=== PATIENT | male | born 1990 | race Caucasian/White ===

== ENCOUNTER 2018-06-25 11:26 | Outpatient (CLI) | payer OTHER | END 2018-06-25 11:27 | disposition home or self-care (01) | LOC: SC 11:26 | PROVIDERS: ATTEND Internal Medicine Pulmonary Disease | DX: R06.81 Apnea, not elsewhere classified (principal); G47.10 Hypersomnia, unspecified; G47.8 Other sleep disorders; R06.83 Snoring; R51 Headache; E66.9 Obesity, unspecified; Z68.36 Body mass index [BMI] 36.0-36.9, adult | CPT/HCPCS: 99203; 99212 ==

== ENCOUNTER 2018-07-04 09:43 | Outpatient (CLI) | payer OTHER ==
[~2018-07-04 09:43] MED LIST: GADOPENTETATE DIMEGLUMINE 5 ML VIAL IVP ONE; IOTHALAMATE MEGLUMINE 50 ML VIAL ONE; LIDOCAINE 1% 10 ML MDV ONE
[2018-07-04] MEDS ORDERED: BUFFERED LIDOCAINE 10 ML SYRINGE ONE (09:49)
--- NOTE | 2018-07-04 11:53 | XRAY Report ---
Reason: OTHER INSTABILITY,LEFT SHOULDER Procedure Date: 07/04/2018 Accession Number: [id number] / [id number] Procedure: FL - Arthrogram Needle Placement CPT Code: FULL RESULT: EXAM: LEFT SHOULDER ARTHROGRAPHIC INJECTION WITH FLUOROSCOPIC GUIDANCE EXAM DATE: 07/04/2018 10:23 AM. CLINICAL HISTORY: Other instability, left shoulder. COMPARISON: None. TECHNIQUE: The risks, benefits, and alternatives of the procedure were discussed with the patient. All questions were answered. Written and verbal consent were obtained. The glenohumeral joint was marked under fluoroscopy and prepped and draped in a sterile manner. Local anesthesia was performed with 1% lidocaine. A 22-gauge needle was then inserted into the glenohumeral joint. 8 mL of a solution containing 25% 1% lidocaine, 25% iodinated contrast, and a 1:200 dilution of gadolinium contrast in sterile saline was then injected. The needle was removed without immediate complication. Other: None. Fluoroscopy Time: 0.2 minutes. Number of Images: 9. FINDINGS: Bones and joints: No fracture or subluxation. Injection: Fluoroscopic images demonstrate needle placement and contrast in the glenohumeral joint. No contrast extravasation outside of the glenohumeral joint. IMPRESSION: Successful fluoroscopically-guided arthrographic injection of the shoulder. [facility]
--- NOTE | 2018-07-04 13:36 | MRI Report ---
Reason: OTHER INSTABILITY,LEFT SHOULDER Procedure Date: 07/04/2018 Accession Number: [id number] / [id number] Procedure: MRI - Arthrogram Shoulder LT CPT Code: FULL RESULT: EXAM: LEFT SHOULDER MRI ARTHROGRAM WITH CONTRAST EXAM DATE: 07/04/2018 10:33 AM. CLINICAL HISTORY: Other instability, left shoulder. COMPARISON: None. TECHNIQUE: Multiplanar, multisequence T1-weighted and fluid-sensitive sequences of the shoulder after an arthrographic injection of dilute gadolinium, dictated under a separate exam. Other: None. FINDINGS: Rotator cuff: Thickening and increased intrasubstance signal involving the distal anterior fibers of the supraspinatus. There is some associated ill-defined fraying at the distal articular surface. No evidence of a high-grade or full-thickness rotator cuff tear. No significant rotator cuff muscle atrophy or fatty replacement. Long head biceps tendon: Intact demonstrating normal course, signal and morphology. Labrum: Intact. No tear is identified. Bones and articular surfaces: No significant articular cartilage defects are seen. Acromioclavicular joint: Mild degenerative change. Type II acromion. IMPRESSION: 1. Moderate supraspinatus tendinosis. 2. Ill-defined fraying at the distal articular surface of the supraspinatus. No evidence of a high-grade or full-thickness rotator cuff tear. 3. Mild degenerative change at the acromioclavicular joint. [facility] MUSCULOSKELETAL RADIOLOGY SECTION
[2018-07-04] MEDS ORDERED: GADOPENTETATE DIMEGLUMINE 5 ML VIAL IVP ONE (15:04)
[2018-07-04] MEDS ORDERED: IOTHALAMATE MEGLUMINE 50 ML VIAL IVP ONE (15:04)
[2018-07-04] MEDS ORDERED: BUFFERED LIDOCAINE 10 ML SYRINGE IU ONE (15:04)
== END 2018-07-04 09:44 | disposition home or self-care (01) ==
LOC: DI 09:43
PROVIDERS: ATTEND Orthopaedic Surgery
DX: M75.92 Shoulder lesion, unspecified, left shoulder (principal); M19.012 Primary osteoarthritis, left shoulder
CPT/HCPCS: 23350; 73222; 77002; Q9961

== ENCOUNTER 2018-07-16 19:33 | Outpatient (CLI) | payer OTHER | END 2018-07-16 19:34 | disposition home or self-care (01) | LOC: SC 19:33 | PROVIDERS: ATTEND Internal Medicine Pulmonary Disease | DX: R06.83 Snoring (principal); G47.61 Periodic limb movement disorder | CPT/HCPCS: 95810 ==

== ENCOUNTER 2018-08-20 10:48 | Outpatient (CLI) | payer OTHER | END 2018-08-20 10:49 | disposition home or self-care (01) | LOC: SC 10:48 | PROVIDERS: ATTEND Nurse Practitioner Family | DX: R06.83 Snoring (principal); G47.61 Periodic limb movement disorder | CPT/HCPCS: 99212; 99214 ==

== ENCOUNTER 2018-09-17 15:12 | Outpatient (CLI) | payer OTHER | END 2018-09-17 15:13 | disposition home or self-care (01) | LOC: SC 15:12 | PROVIDERS: ATTEND Nurse Practitioner Family | DX: R06.83 Snoring (principal); R53.83 Other fatigue | CPT/HCPCS: 99212; 99213 ==

== ENCOUNTER 2018-10-23 12:44 | Outpatient (CLI) | payer OTHER | END 2018-10-23 12:45 | disposition home or self-care (01) | LOC: SC 12:44 | PROVIDERS: ATTEND Nurse Practitioner Family | DX: R06.83 Snoring (principal) | CPT/HCPCS: 99212; 99213 ==

== ENCOUNTER 2018-11-25 10:24 | Emergency (ER) | payer OTHER ==
--- NOTE | 2018-11-25 10:52 | ED Physician Documentation ---
PD HPI FOCAL NEURO - Stated complaint Stated Complaint: LT SIDE NUMBESS - Chief complaint Chief Complaint: Neuro - History obtained from History obtained from: Patient - History of Present Illness Timing - onset: How many days ago Timing - duration: Days (He initially noted some numbness and weakness of the left arm a couple of days ago. He has had shoulder problems with this apparently rotator cuff and is due for surgery in March and has been doing physical therapy and strengthening of the shoulder girdle muscles. He initially attributed the numbness in the arm to problems from the shoulder. He then last night into today noted some feeling of numbness and weakness in the left leg and this morning some numbness in the left face along with a droop. He states it feels as though he had "just had dental cavity filled" with the numbness feeling of the face. He is also having a obvious droop of the left side of the face around the corner of the mouth. He denied any headache. He is having that shoulder pain into the pectoral area of the chest but is also having pain in the left side of the neck.) Timing - details: Gradual onset Severity of deficit: Moderate Weakness: Face, Arm, Leg, Left Numbness: Face, Arm, Leg, Left Associated symptoms: Chest pain (Left pectoral and shoulder into the left side of the neck.), Neck pain. No: Headache, Nausea / vomiting, Syncope, Fall, Head injury Contributing factors: negative: Anticoagulated, Vascular dz Baseline status: positive: A&OX3, ambulatory, indep Similar symptoms before: Has not had sx before Recently seen: Clinic (He is being treated for left shoulder or cuff problem.) Review of Systems Constitutional: denies: Fever, Chills Nose: denies: Rhinorrhea / runny nose, Congestion Throat: denies: Sore throat Cardiac: denies: Palpitations, Pedal edema, Calf pain Respiratory: denies: Cough, Wheezing GI: denies: Abdominal Pain, Nausea, Vomiting Skin: denies: Rash, Lesions Neurologic: reports: Focal weakness, Numbness. denies: Generalized weakness, Altered mental status, Headache Psychiatric: denies: Depressed, Anxiety PD PAST MEDICAL HISTORY - Past Medical History Past Medical History: Yes Cardiovascular: Hypertension Psych: Anxiety Musculoskeletal: Other (Left shoulder pain with a rotator cuff process and biceps.) - Past Surgical History Past Surgical History: Yes - Present Medications Home Medications: Ambulatory Orders Medication Instructions Recorded Confirmed Lisinopril [Zestril] 20 mg PO 11/25/18 Venlafaxine ER [Effexor ER] 150 mg PO DAILY 11/25/18 11/25/18 - Allergies Allergies/Adverse Reactions: Allergies Allergy/AdvReac Type Severity Reaction Status Date / Time No Known Drug Allergies Allergy Verified 11/25/18 10:29 - Social History Does the pt smoke?: No Smoking Status: Former smoker Does the pt drink ETOH?: Yes Does the pt have substance abuse?: No PD ED PE NORMAL - Vitals Vital signs reviewed: Yes - General General: Alert and oriented X 3, No acute distress (He is comfortable lying still. He appears uncomfortable with lifting or moving his left shoulder or flexing at the elbow. There is no edema in the hand or leg), Well developed/nourished - HEENT HEENT: Atraumatic - Neck Neck: Supple, no meningeal sign, No adenopathy, No bruit - Cardiac Cardiac: RRR, No murmur - Respiratory Respiratory: No respiratory distress, Clear bilaterally - Abdomen Abdomen: Normal bowel sounds, Soft, Non tender, Non distended - Male Male : Deferred - Rectal Rectal: Deferred - Back Back: No CVA TTP, No spinal TTP - Derm Derm: Normal color, Warm and dry, No rash - Neuro Neuro: Alert and oriented X 3, Normal speech, Other (There is an obvious left facial droop. Asking him to puff his cheeks, he is unable to hold pressure on the left side and sputters out air on the left. He has decreased sensation to light touch and sharp numbness on the left face left arm and left leg and does not appear to be dermatomal. There is weakness on the left arm and leg with lifting. His left arm limitation is also due to the shoulder pain he is previously had. There is the obvious left facial droop.) Eye Opening: Spontaneous Motor: Obeys Commands Verbal: Oriented GCS Score: 15 - Psych Psych: Normal mood NIHSS - Level of Consciousness Level of consciousness: (0) Alert, Keenly responsive LOC Questions: (0) Answers both Q's correct LOC Commands: (0) Performs both correctly - Gaze Best Gaze: (0) Normal - Visual Visual: (0) No loss - Facial Palsy Facial Palsy: (2) Partial paralysis - Motor Arms (both separate) Motor Arm (right): (0) No drift Motor Arm (left): (1) Drift (but does seem to be related to pain in shoulder holding arm up) - Motor Legs (both separate) Motor Leg (right): (0) No drift Motor Leg (left): (1) Drift - Limb Ataxia Limb Ataxia: (0) Absent - Sensory Sensory: (1) Povf-[id number] loss - Best Language Best Language: (0) No aphasia - Dysarthria Dysarthria: (0) Normal - Extinction and Inattention (formally neg Extinction and inattention: (0) No abnormality - Total Score/Results Total Score/Result: 5 Results - Vitals Vitals: Vital Signs - 24 hr 11/25/18 11/25/18 11/25/18 10:28 12:32 17:09 Temperature 37.5 C Heart Rate 93 92 85 Respiratory 20 14 14 Rate Blood Pressure 183/107 H 149/93 H 159/93 H O2 Saturation 98 96 96 Oxygen O2 Source Room air - Labs Labs: Laboratory Tests 11/25/18 11/25/18 11/25/18 11:10 11:10 11:10 WBC 6.3 RBC 5.00 Hgb 14.9 Hct 43.2 MCV 86.5 MCH 29.8 MCHC 34.4 RDW 12.7 Plt Count 281 MPV 8.1 Neut # (Auto) 4.4 Lymph # (Auto) 1.4 L [place] # (Auto) 0.4 Eos # (Auto) 0.0 Baso # (Auto) 0.0 Absolute Nucleated RBC 0.01 Nucleated RBC % 0.1 ESR 2 Sodium 137 Potassium 4.1 Chloride 102 Carbon Dioxide 25 Anion Gap 10.0 BUN 15 Creatinine 0.8 Estimated GFR (MDRD) 116 Glucose 114 H Calcium 9.7 Magnesium 1.8 Total Bilirubin 0.5 AST 35 ALT 34 Alkaline Phosphatase 82 Total Creatine Kinase 225 Total Protein 8.4 H Albumin 4.7 Globulin 3.7 Albumin/Globulin Ratio 1.3 Lipase 42 PD MEDICAL DECISION MAKING - ED course Complexity details: re-evaluated patient, considered differential (Highest concern was for vascular including dissection, stroke or bleeding. CT angios were performed of the chest neck and head without any acute dissection or occlusions noted. Blood test showed normal blood count electrolytes and sed rate. At this point I am unable to get an MRI this afternoon but would be able to tomorrow. We have no neurology available. 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 They deferred to more local hospital. I spoke with stroke neurologist at [facility]. It did seem timely in order to get further imaging such as MRI MRA and we are unable to get that this evening or until tomorrow. The neurologist accepted transfer of the patient for further work-up.) Departure - Departure Disposition: 02 Transfer Acute Care Hosp Clinical Impression: Acute left-sided weakness, Left sided numbness Shoulder pain Qualifiers: Chronicity: acute Laterality: left Qualified Code(s): M25.512 - Pain in left shoulder Condition: Stable Record reviewed to determine appropriate education?: Yes
[2018-11-25] MEDS ORDERED: MORPHINE 10 MG/ML VIAL IVP STA (11:03)
[2018-11-25] MEDS ORDERED: SODIUM CHLORIDE 0.9% 1,000 ML IV ONE (11:03)
[2018-11-25] MEDS ORDERED: KETOROLAC 15 MG/ML VIAL IVP STA ×2 (11:03→16:43)
[2018-11-25] MEDS ORDERED: IOVERSOL 320 100 ML VIAL IVP ONE ×3 (11:17→15:22)
[2018-11-25 11:25] LABS: BASOPHILS % (AUTO) 0.5 %; EOSINOPHILS % (AUTO) 0.7 %; HGB - HEMOGLOBIN 14.9 g/dL (14.0-18.0); LYMPHOCYTES # (AUTO) 1.4 10^3/uL (1.5-3.5); LYMPHOCYTES % (AUTO) 22.6 %; MEAN CORPUSCULAR HEMOGLOBIN 29.8 pg (27.0-31.0); MEAN CORPUSCULAR HGB CONC 34.4 g/dL (32.0-36.0); MEAN CORPUSCULAR VOLUME 86.5 fL (80.0-94.0); MEAN PLATELET VOLUME 8.1 fL (7.4-11.4); MONOCYTES # (AUTO) 0.4 10^3/uL (0.0-1.0); MONOCYTES % (AUTO) 6.3 %; NEUTROPHILS # (AUTO) 4.4 10^3/uL (1.5-6.6); NEUTROPHILS % (AUTO) 69.9 %; PLT - PLATELET COUNT 281 10^3/uL (130-450); RED CELL DISTRIBUTION WIDTH 12.7 % (12.0-15.0); WHITE BLOOD COUNT 6.3 x10^3/uL (4.8-10.8)
[2018-11-25 11:37] LABS: ALBUMIN 4.7 g/dL (3.2-5.5); ALBUMIN/GLOBULIN RATIO 1.3 (1.0-2.2); BILIRUBIN,TOTAL 0.5 mg/dL (0.2-1.0); CALCIUM 9.7 mg/dL (8.5-10.3); CREATININE 0.8 mg/dL (0.6-1.2); MAGNESIUM 1.8 mg/dL (1.7-2.8); TOTAL PROTEIN 8.4 g/dL (6.7-8.2)
--- NOTE | 2018-11-25 12:21 | CT Report ---
Reason: weakness left face/arm/leg Procedure Date: 11/25/2018 Accession Number: [id number] / [id number] Procedure: CT - ANGIO CHEST W/WO CPT Code: FULL RESULT: EXAM: CT ANGIOGRAM CHEST EXAM DATE: 11/25/2018 12:00 PM. CLINICAL HISTORY: Weakness left face/arm/leg. COMPARISON: None. TECHNIQUE: Routine helical imaging was performed through the chest in the arterial phase and without contrast. IV Contrast: OPTI 320 90mL. Reconstructions: Coronal 3-D MIP reconstructions.Sagittal and coronal. In accordance with CT protocol optimization, one or more of the following dose reduction techniques were utilized for this exam: automated exposure control, adjustment of mA and/or KV based on patient size, or use of iterative reconstructive technique. FINDINGS: Thoracic aorta and vascular structures: The thoracic aortic arch demonstrates no evidence of acute injury within limitation of some motion of the ascending aorta. The right brachiocephalic artery gives rise to the right common carotid artery, right vertebral artery, and right subclavian artery, all are patent. The left common carotid artery arises independently from the aortic arch and is patent. The left brachiocephalic artery is patent and gives rise to a patent vertebral artery on the left. Limited evaluation of the main pulmonary artery demonstrates no thrombus, measured caliber is up to 2.9 cm. Lungs/Pleura: Limited evaluation of the lungs due to motion, no consolidation or lung masses detected. No pleural effusion or pneumothorax. Mediastinum: Normal. No cardiac enlargement or adenopathy. Upper Abdomen: Unremarkable. Other: None. IMPRESSION: No evidence of injury to the aorta and its proximal branch vessels. [facility]
[2018-11-25] MEDS ORDERED: HYDROmorphone 1 MG/ML CARPUJECT IVP STA ×3 (12:43→18:43)
--- NOTE | 2018-11-25 13:29 | CT Report ---
Reason: L sided weakness/numbness Procedure Date: 11/25/2018 Accession Number: [id number] / [id number] Procedure: CT - ANGIO HEAD W CPT Code: FULL RESULT: EXAM: CT ANGIOGRAM HEAD. CT SCAN OF THE HEAD WITH CONTRAST. EXAM DATE: 11/25/2018 01:02 PM CLINICAL HISTORY: L sided weakness/numbness. COMPARISON: Concurrently obtained CTA neck has been dictated separately. TECHNIQUE: - CT Scan Head: Using a multidetector scanner, axial images were acquired from the foramen magnum to the skull vertex following contrast administration. - CT Angiogram: Using a multidetector scanner, high-resolution axial images were acquired from the skull base through vertex following rapid infusion of intravenous contrast. Reformats: Multiplanar MIP reformats were reconstructed. Nascet criteria used for stenosis measurement. IV Contrast: 80 cc Optiray 320. In accordance with CT protocol optimization, one or more of the following dose reduction techniques were utilized for this exam: automated exposure control, adjustment of mA and/or KV based on patient size, or use of iterative reconstructive technique. FINDINGS: NON-CONTRAST HEAD: Not performed. No abnormal enhancement on the postcontrast CT head. Cavum septum pellucidum et vergae, a benign anatomic variant. No hydrocephalus. No midline shift. No definite evidence of acute infarct or hemorrhage on this postcontrast evaluation although evaluation is not as sensitive as noncontrast CT head. The visualized orbits are unremarkable. The postcontrast appearance of the paranasal sinuses and mastoid air cells is unremarkable. POST-CONTRAST HEAD: No abnormal enhancement. CT ANGIOGRAM HEAD: RIGHT: Internal Carotid artery: No evidence of dissection. No evidence of aneurysm along the intracranial ICA. Anterior Cerebral Artery: Patent without significant stenosis, aneurysm, or vascular malformation. Middle Cerebral Artery: Patent without significant stenosis, aneurysm, or vascular malformation. Posterior Cerebral Artery: Patent without significant stenosis, aneurysm, or vascular malformation. Posterior Communicating Artery: Patent. No aneurysm. Vertebral Artery: Patent without significant stenosis. No evidence of dissection. LEFT: Internal Carotid artery: No evidence of dissection. No evidence of aneurysm along the intracranial ICA. Anterior Cerebral Artery: Patent without significant stenosis, aneurysm, or vascular malformation. Middle Cerebral Artery: Patent without significant stenosis, aneurysm, or vascular malformation. Posterior Cerebral Artery: Patent without significant stenosis, aneurysm, or vascular malformation. Posterior Communicating Artery: Patent. No aneurysm. Vertebral Artery: Patent without significant stenosis. No evidence of dissection. CENTRAL: Anterior Communicating Artery: Patent. No aneurysm. Basilar Artery: Patent without significant stenosis. No aneurysm. DURAL VENOUS SINUSES AND MAJOR CENTRAL VEINS: Patent. IMPRESSION: 1. Noncontrast CT head was not performed. 2. No abnormal enhancement on the postcontrast CT head. No definite evidence of acute infarct or hemorrhage on this postcontrast evaluation although evaluation is much less sensitive than with noncontrast CT head. 3. No CTA evidence of hemodynamically significant stenosis, large vessel occlusion, acute dissection, aneurysm, or vascular malformation within intracranial arteries. [facility]
--- NOTE | 2018-11-25 14:20 | CT Report ---
Reason: L sided facial droop, L shoulder pain Procedure Date: 11/25/2018 Accession Number: [id number] / [id number] Procedure: CT - ANGIO NECK W/WO CPT Code: FULL RESULT: EXAM: CT ANGIOGRAM NECK EXAM DATE: 11/25/2018 01:02 PM. CLINICAL HISTORY: 28-year-old male. L sided facial droop, L shoulder pain. COMPARISON: CTA head up to concurrently TECHNIQUE: Routine axial helical imaging was performed from the skull base through the aortic arch. Reconstructions: Routine multiplanar 3D MIP reconstructions. IV Contrast: OPTI 320 80mL. Evaluation of arterial stenosis is based on a NASCET method of measurement. In accordance with CT protocol optimization, one or more of the following dose reduction techniques were utilized for this exam: automated exposure control, adjustment of mA and/or KV based on patient size, or use of iterative reconstructive technique. FINDINGS: Right Carotid: The common carotid, internal carotid, and external carotid arteries are widely patent. No dissection, significant atherosclerotic plaque, or calcification identified. Left Carotid: The common carotid, internal carotid, and external carotid arteries are widely patent. No dissection, significant atherosclerotic plaque, or calcification identified. Vertebrals: The vertebrobasilar system shows no stenoses. Intracranial Circulation: Concurrently obtained CTA head is dictated separately. Other: The visualized lung apices are clear. The visualized osseous structures are unremarkable. The visualized soft tissues of the neck demonstrate no acute abnormality. IMPRESSION: 1. Normal neck CT angiogram. No hemodynamically significant stenoses. 2. Concurrently obtained CTA head as dictated separately. [facility]
[2018-11-25] MEDS ORDERED: ASPIRIN CHEW 81 MG TABLET PO STA (16:24)
[2018-11-25] MEDS ORDERED: ACETAMINOPHEN 500 MG TABLET PO STA (16:44)
[2018-11-25 18:19] VITALS: BP 165/79
== END 2018-11-25 18:50 | disposition short-term general hospital (02) ==
LOC: ED 10:24
DX: R29.810 Facial weakness (principal); R29.898 Other symptoms and signs involving the musculoskeletal system; R20.0 Anesthesia of skin; M25.512 Pain in left shoulder; I10 Essential (primary) hypertension; Z87.891 Personal history of nicotine dependence
CPT/HCPCS: 36415; 70496; 70498; 71275; 80053; 82550; 83690; 83735; 85025; 85651; 93005; 96361; 96374; 96375; 96376; 99284; A9270; J1170; Q9967; 99283

== ENCOUNTER 2019-04-06 18:34 | Outpatient (CLI) | payer OTHER | END 2019-04-06 18:35 | disposition critical access hospital (66) | LOC: EMS 18:34 | PROVIDERS: ATTEND Surgery | DX: R20.2 Paresthesia of skin (principal); R52 Pain, unspecified; R11.2 Nausea with vomiting, unspecified; R19.7 Diarrhea, unspecified; R50.9 Fever, unspecified | CPT/HCPCS: A0425; A0429 ==

== ENCOUNTER 2019-04-06 18:53 | Emergency (ER) | payer OTHER ==
[2019-04-06] MEDS ORDERED: SODIUM CHLORIDE 0.9% 1,000 ML IV STA (19:09)
[2019-04-06] MEDS ORDERED: ONDANSETRON 4 MG/2 ML VIAL IVP STA (19:09)
[2019-04-06 19:31] LABS: BASOPHILS % (AUTO) 0.5 %; EOSINOPHILS # (AUTO) 0.1 10^3/uL (0.0-0.7); EOSINOPHILS % (AUTO) 0.6 %; HGB - HEMOGLOBIN 15.2 g/dL (14.0-18.0); LYMPHOCYTES # (AUTO) 2.3 10^3/uL (1.5-3.5); MEAN CORPUSCULAR HEMOGLOBIN 30.2 pg (27.0-31.0); MEAN CORPUSCULAR HGB CONC 35.2 g/dL (32.0-36.0); MEAN CORPUSCULAR VOLUME 85.9 fL (80.0-94.0); MEAN PLATELET VOLUME 9.8 fL (7.4-11.4); MONOCYTES # (AUTO) 0.6 10^3/uL (0.0-1.0); MONOCYTES % (AUTO) 7.7 %; NEUTROPHILS # (AUTO) 5.1 10^3/uL (1.5-6.6); PLT - PLATELET COUNT 336 10^3/uL (130-450); RED BLOOD COUNT 5.03 10^6/uL (4.70-6.10); RED CELL DISTRIBUTION WIDTH 11.7 % (12.0-15.0); WHITE BLOOD COUNT 8.1 x10^3/uL (4.8-10.8)
--- NOTE | 2019-04-06 19:43 | ED Physician Documentation ---
History of Present Illness - Stated complaint Stated Complaint: N/V/D - Chief complaint Chief Complaint: Abd Pain - History obtained from History obtained from: Patient, Family - History of Present Illness Timing: Today Pain level max: 6 Pain level now: 5 Improved by: nothing Worsened by: nothing - Additonal information Additional information: abd pain, vomiting, RUQ pain. He also states that he has been being worked up for an unknown neurological condition. States he has numbness and weakness to the left side of his body. States 2 to 3 days ago started spreading to the right side and now is unable to walk. He has been seen by neurology at [facility] and has another appointment on April [address] Langley. He states he does not know what work-up has been done, he believes the first neurologist told him it was due to PTSD and "all in his head". He then states that his psychiatrist told him that that diagnosis was "BS". Nothing makes it better or worse Review of Systems Ten Systems: 10 systems reviewed and negative Constitutional: denies: Fever, Chills Ears: denies: Ear pain Nose: denies: Rhinorrhea / runny nose, Congestion Respiratory: denies: Cough GI: denies: Diarrhea, Hematemesis, Bloody / black stool : denies: Dysuria Skin: denies: Rash Musculoskeletal: denies: Neck pain, Back pain Neurologic: reports: Focal weakness (bilateral), Numbness (Bilateral). denies: Confused, Altered mental status, Headache, Head injury, LOC PD PAST MEDICAL HISTORY - Past Medical History Past Medical History: Yes Cardiovascular: Hypertension Psych: Anxiety Musculoskeletal: Other (Left shoulder pain with a rotator cuff process and biceps.) - Past Surgical History Past Surgical History: Yes - Present Medications Home Medications: Ambulatory Orders Medication Instructions Recorded Confirmed Lisinopril [Zestril] 20 mg PO DAILY 11/25/18 04/06/19 Venlafaxine ER [Effexor ER] 150 mg PO DAILY 11/25/18 04/06/19 Gabapentin [Neurontin] 600 mg PO TID 04/06/19 04/06/19 - Allergies Allergies/Adverse Reactions: Allergies Allergy/AdvReac Type Severity Reaction Status Date / Time No Known Drug Allergies Allergy Verified 04/06/19 19:05 - Social History Does the pt smoke?: No Smoking Status: Former smoker Does the pt drink ETOH?: Yes Does the pt have substance abuse?: No PD ED PE NORMAL - Vitals Vital signs reviewed: Yes - General General: Alert and oriented X 3, No acute distress, Well developed/nourished - HEENT HEENT: Atraumatic, PERRL, EOMI, Ears normal, Moist mucous membranes, Other (no facial droop) - Neck Neck: Supple, no meningeal sign - Cardiac Cardiac: RRR - Respiratory Respiratory: No respiratory distress, Clear bilaterally - Abdomen Abdomen: Soft, Non distended, Other (mild TTP RUQ.) - Rectal Rectal: Pt declined - Back Back: No spinal TTP - Derm Derm: Warm and dry - Extremities Extremities: No deformity, No edema - Neuro Neuro: Alert and oriented X 3, Other (unable to lift arms above nipple line B. 4/5 strength in all extremities. 3+ DTR patellar B, 2+ achilles. 2+ B biceps. states decreased sensation everywhere. ) - Psych Psych: Normal mood, Normal affect Results - Vitals Vitals: Vital Signs - 24 hr 04/06/19 04/06/19 04/06/19 19:00 19:20 20:22 Temperature 38.0 C H Heart Rate 106 H 109 H 100 Respiratory 16 17 Rate Blood Pressure 157/110 H 141/91 H O2 Saturation 100 93 100 04/06/19 04/06/19 04/06/19 22:06 22:07 22:29 Temperature 37.1 C Heart Rate 87 90 Respiratory 17 20 Rate Blood Pressure 107/85 H 107/85 H O2 Saturation 100 97 Oxygen O2 Source Room air - Labs Labs: Laboratory Tests 04/06/19 04/06/19 04/06/19 19:23 19:23 19:23 WBC 8.1 RBC 5.03 Hgb 15.2 Hct 43.2 MCV 85.9 MCH 30.2 MCHC 35.2 RDW 11.7 L Plt Count 336 MPV 9.8 Neut # (Auto) 5.1 Lymph # (Auto) 2.3 [place] # (Auto) 0.6 Eos # (Auto) 0.1 Baso # (Auto) 0.0 Absolute Nucleated RBC 0.00 Nucleated RBC % 0.0 ESR 3 Sodium 136 Potassium 3.7 Chloride 100 L Carbon Dioxide 24 Anion Gap 12.0 BUN 16 Creatinine 1.0 Estimated GFR (MDRD) 90 Glucose 111 H Calcium 9.5 Total Bilirubin 0.9 AST 46 H ALT 69 H Alkaline Phosphatase 75 C-Reactive Protein Total Protein 8.6 H Albumin 4.8 Globulin 3.8 Albumin/Globulin Ratio 1.3 Lipase 41 Urine Color Urine Clarity Urine pH Ur Specific [place] Urine Protein Urine Glucose (UA) Urine Ketones Urine Occult Blood Urine Nitrite Urine Bilirubin Urine Urobilinogen Ur Leukocyte Esterase Ur Microscopic Review Urine Culture Comments 04/06/19 04/06/19 19:23 20:00 WBC RBC Hgb Hct MCV MCH MCHC RDW Plt Count MPV Neut # (Auto) Lymph # (Auto) [place] # (Auto) Eos # (Auto) Baso # (Auto) Absolute Nucleated RBC Nucleated RBC % ESR Sodium Potassium Chloride Carbon Dioxide Anion Gap BUN Creatinine Estimated GFR (MDRD) Glucose Calcium Total Bilirubin AST ALT Alkaline Phosphatase C-Reactive Protein < 1.0 Total Protein Albumin Globulin Albumin/Globulin Ratio Lipase Urine Color YELLOW Urine Clarity CLEAR Urine pH 6.5 Ur Specific [place] 1.015 Urine Protein NEGATIVE Urine Glucose (UA) NEGATIVE Urine Ketones NEGATIVE Urine Occult Blood NEGATIVE Urine Nitrite NEGATIVE Urine Bilirubin NEGATIVE Urine Urobilinogen 0.2 (NORMAL) Ur Leukocyte Esterase NEGATIVE Ur Microscopic Review NOT INDICATED Urine Culture Comments NOT INDICATED - Rads (name of study) RUQ US Radiology: Prelim report reviewed, EMP read contemporaneously, See rad report (N ormal gallbladder. No cholelithiasis or cholecystitis. 2. Moderate fatty liver. 3. See above. ) PD MEDICAL DECISION MAKING - ED course Complexity details: reviewed results, re-evaluated patient, considered differential, d/w patient, d/w family ED course: Nausea and vomiting resolved. Unclear etiology. No acute findings on ultrasound other than a fatty liver. Normal deep tendon reflexes on exam. He declines a rectal exam. Unable to walk even with a walker. He states he has been using a cane at home. He now feels too weak to even stand. As he is being worked up and evaluated by neurology at [facility], I feel he would best be served there. Will contact [facility] for transfer. Discussed with Dr. Acharya (neurology) and recommends admitting here, MRI in the AM and PT consult. Discussed with Dr. Macias, hospitalist, who feels that she would be better served at a larger hospital. He will call Dr. Castano directly to discuss. After their discussion, patient will be transferred to [facility]. Discussed the case with Dr. Michele, hospitalist at [facility] who graciously accepts in transfer at 2330. Patient will be transferred COBRA forms completed Departure - Departure Disposition: 02 Transfer Acute Care Hosp Clinical Impression: Paresthesias, Weakness Vomiting Qualifiers: Vomiting type: unspecified Vomiting Intractability: non-intractable Nausea presence: with nausea Qualified Code(s): R11.2 - Nausea with vomiting, unspecified Condition: Stable
[2019-04-06 19:45] LABS: ALBUMIN 4.8 g/dL (3.2-5.5); ALBUMIN/GLOBULIN RATIO 1.3 (1.0-2.2); BILIRUBIN,TOTAL 0.9 mg/dL (0.2-1.0); CALCIUM 9.5 mg/dL (8.5-10.3); TOTAL PROTEIN 8.6 g/dL (6.7-8.2)
[2019-04-06 20:29] LABS: BILIRUBIN,URINE NEGATIVE (NEGATIVE); GLUCOSE, URINE (UA) NEGATIVE (NEGATIVE); KETONES,URINE (UA) NEGATIVE (NEGATIVE); LEUKOCYTE ESTERASE, URINE NEGATIVE (NEGATIVE); NITRITE,URINE NEGATIVE (NEGATIVE); OCCULT BLOOD,URINE NEGATIVE (NEGATIVE); PH,URINE 6.5 PH (5.0-7.5); PROTEIN,URINE NEGATIVE (NEGATIVE); UROBILINOGEN,URINE 0.2 (NORMAL) E.U./dL (NORMAL)
[2019-04-06 20:31] LABS: CLARITY,URINE CLEAR (CLEAR)
--- NOTE | 2019-04-06 21:03 | Ultrasound Report ---
Reason: RUQ abd pain Procedure Date: 04/06/2019 Accession Number: [id number] / [id number] Procedure: US - Abdomen Limited CPT Code: FULL RESULT: EXAM: ABDOMEN ULTRASOUND LIMITED, RUQ EXAM DATE: 04/06/2019 08:50 PM. CLINICAL HISTORY: Right upper quadrant abdominal pain. COMPARISON: None. TECHNIQUE: Real-time scanning was performed with static images obtained. FINDINGS: Liver: Moderate fatty liver. 18.3 cm. Main portal vein flow: Hepatopetal. Gallbladder: Normal. No stones, wall thickening, or sonographic Cardenas's sign. Biliary System: Common duct measures 4 mm. No intrahepatic or extrahepatic ductal dilatation. Suboptimal visualization due to patient's body habitus. Other: Suboptimal visualization due to patient's body habitus. The pancreas was not well seen due to limited penetration and bowel gas. The right kidney measures 11.5 cm in length and there is no hydronephrosis. IMPRESSION: 1. Normal gallbladder. No cholelithiasis or cholecystitis. 2. Moderate fatty liver. 3. See above. RADIA
[2019-04-07] MEDS ORDERED: LISINOPRIL 5 MG TABLET PO STA (00:43)
[2019-04-07] MEDS ORDERED: GABAPENTIN 100 MG CAPSULE PO STA (00:43)
[2019-04-07] MEDS ORDERED: VENLAFAXINE 37.5 MG TABLET PO SCH (01:00)
[2019-04-07] MEDS ORDERED: KETOROLAC 30 MG/ML VIAL IVP STA (01:02)
[2019-04-07 05:14] VITALS: BP 138/77
== END 2019-04-07 05:49 | disposition short-term general hospital (02) ==
LOC: EDUNIT# → ED 18:53
DX: R20.2 Paresthesia of skin (principal); R53.1 Weakness; R11.2 Nausea with vomiting, unspecified; I10 Essential (primary) hypertension; Z87.891 Personal history of nicotine dependence
CPT/HCPCS: 36415; 76705; 80053; 81003; 83690; 85025; 85651; 86140; 96361; 96374; 96375; 99284; 99285; A9270; 81001; 87086

== ENCOUNTER 2019-06-13 11:23 | Outpatient (CLI) | payer OTHER | END 2019-06-13 11:24 | disposition EMS.NT | LOC: EMS 11:23 | PROVIDERS: ATTEND Surgery | DX: R40.20 Unspecified coma (principal) ==

== ENCOUNTER 2019-06-13 11:57 | Emergency (ER) | payer OTHER ==
[2019-06-13 12:07] VITALS: BP 148/94
[2019-06-13] MEDS ORDERED: oxyCODONE 5 MG TABLET PO STA (12:11)
--- NOTE | 2019-06-13 12:11 | ED Physician Documentation ---
PD HPI FOCAL NEURO - Stated complaint Stated Complaint: SIEZURE - Chief complaint Chief Complaint: Neuro - History obtained from History obtained from: Patient, EMS - History of Present Illness Timing - onset: Other (This is a 28-year-old gentleman who is active duty in the [employer] He has diagnoses of both pseudoseizures and conversion disorder with chronic numbness and weakness of the left side. He is on limited duty due to same. He has had neurologic work-up at [facility] without findings for epilepsy. He had an apparent pseudoseizure today and fell out of his wheelchair without injury. He does have chronic back pain. No recent medication changes. No drug or alcohol use. He feels back to his baseline.) Review of Systems Ten Systems: 10 systems reviewed and negative Constitutional: denies: Fever, Chills Cardiac: denies: Chest pain / pressure Respiratory: denies: Dyspnea, Cough GI: denies: Abdominal Pain, Nausea Musculoskeletal: reports: Back pain (Chronic and at his baseline) PD PAST MEDICAL HISTORY - Past Medical History Cardiovascular: Hypertension Psych: Anxiety Musculoskeletal: Other - Past Surgical History Past Surgical History: Yes - Present Medications Home Medications: Ambulatory Orders Medication Instructions Recorded Confirmed Lisinopril [Zestril] 20 mg PO DAILY 11/25/18 04/06/19 Venlafaxine ER [Effexor ER] 150 mg PO DAILY 11/25/18 04/06/19 Gabapentin [Neurontin] 600 mg PO TID 04/06/19 04/06/19 - Allergies Allergies/Adverse Reactions: Allergies Allergy/AdvReac Type Severity Reaction Status Date / Time No Known Drug Allergies Allergy Verified 04/06/19 19:05 - Social History Does the pt smoke?: No Smoking Status: Never smoker Does the pt drink ETOH?: Yes Does the pt have substance abuse?: No PD ED PE NORMAL - Vitals Vital signs reviewed: Yes - General General: Alert and oriented X 3, No acute distress - HEENT HEENT: PERRL, EOMI, Ears normal, Pharynx benign - Neck Neck: Supple, no meningeal sign, No bony TTP - Cardiac Cardiac: RRR, No murmur - Respiratory Respiratory: No respiratory distress, Clear bilaterally - Abdomen Abdomen: Normal bowel sounds, Soft, Non tender - Back Back: No CVA TTP, No spinal TTP - Derm Derm: Normal color, Warm and dry - Neuro Neuro: Alert and oriented X 3, mammalogist 2-12 intact, No sensory deficit, Other (Mild weakness in safety supervisor strength and flexion in the left arm. No sensory deficit.) Motor: Obeys Commands Verbal: Oriented Results - Vitals Vitals: Vital Signs - 24 hr 06/13/19 12:02 Temperature 36.9 C Heart Rate 102 H Respiratory 16 Rate Blood Pressure 148/94 H O2 Saturation 94 Oxygen O2 Source Room air PD MEDICAL DECISION MAKING - ED course ED course: This is a gentleman with diagnoses of pseudoseizures who had an apparent pseudoseizure today. There is no need for an expansion of his otherwise complete work-up that has already been been done and he is back at his baseline. Departure - Departure Disposition: 01 Home, Self Care Clinical Impression: Pseudoseizure Condition: Good Record reviewed to determine appropriate education?: Yes Instructions: ED Seizure Recurrent Comments[place] for referrals for a second opinion, continue to not drive and take your routine medications.
== END 2019-06-13 12:34 | disposition home or self-care (01) ==
LOC: ED 11:57
DX: F44.5 Conversion disorder with seizures or convulsions (principal); I10 Essential (primary) hypertension
CPT/HCPCS: 99283; A9270

== ENCOUNTER 2019-08-04 17:52 | Emergency (ER) | payer OTHER ==
[2019-08-04] MEDS ORDERED: KETOROLAC 60 MG/2 ML VIAL IM STA (18:24)
--- NOTE | 2019-08-04 18:29 | ED Physician Documentation ---
History of Present Illness - Stated complaint Stated Complaint: SEIZURES - Chief complaint Chief Complaint: Neuro - History obtained from History obtained from: Patient - History of Present Illness Timing: Yesterday Pain level max: 0 Pain level now: 0 Improved by: nothing Worsened by: nothing - Additonal information Additional information: 29-year-old male with a history of conversion disorder and pseudoseizures. He states that he has had 3 "seizures" In the past 24 hours. The first was approximately 30 seconds in length. There was no postictal period. The second was while he was asleep. The third was approximately 30 seconds. Again no postictal period. Review of Systems Ten Systems: 10 systems reviewed and negative Constitutional: denies: Fever, Chills Ears: denies: Ear pain Nose: denies: Rhinorrhea / runny nose, Congestion GI: denies: Nausea, Diarrhea : denies: Dysuria Skin: denies: Rash Musculoskeletal: denies: Neck pain, Back pain Neurologic: denies: Focal weakness, Numbness, Confused, Headache, Head injury, LOC PD PAST MEDICAL HISTORY - Past Medical History Past Medical History: Yes Cardiovascular: Hypertension Psych: Anxiety Musculoskeletal: Other - Past Surgical History Past Surgical History: Yes - Present Medications Home Medications: Ambulatory Orders Medication Instructions Recorded Confirmed Lisinopril [Zestril] 20 mg PO DAILY 11/25/18 04/06/19 Venlafaxine ER [Effexor ER] 150 mg PO DAILY 11/25/18 04/06/19 Gabapentin [Neurontin] 600 mg PO TID 04/06/19 04/06/19 - Allergies Allergies/Adverse Reactions: Allergies Allergy/AdvReac Type Severity Reaction Status Date / Time No Known Drug Allergies Allergy Verified 04/06/19 19:05 - Social History Does the pt smoke?: No Smoking Status: Never smoker Does the pt drink ETOH?: Yes Does the pt have substance abuse?: No PD ED PE NORMAL - Vitals Vital signs reviewed: Yes - General General: Alert and oriented X 3, No acute distress, Well developed/nourished - HEENT HEENT: Atraumatic, PERRL, Moist mucous membranes - Neck Neck: Supple, no meningeal sign, No bony TTP - Cardiac Cardiac: RRR, Strong equal pulses - Respiratory Respiratory: No respiratory distress, Clear bilaterally - Abdomen Abdomen: Soft, Non tender, Non distended - Derm Derm: Warm and dry - Extremities Extremities: No tenderness to palpate, Normal ROM s pain, No edema - Neuro Neuro: Alert and oriented X 3, scullion chief 2-12 intact, No motor deficit, No sensory deficit Eye Opening: Spontaneous Motor: Obeys Commands Verbal: Oriented GCS Score: 15 - Psych Psych: Normal mood, Normal affect Results - Vitals Vitals: Vital Signs - 24 hr 08/04/19 08/04/19 17:57 18:33 Temperature 36.9 C Heart Rate 97 94 Respiratory 14 18 Rate Blood Pressure 179/113 H 149/90 H O2 Saturation 96 97 Oxygen O2 Source Room air PD MEDICAL DECISION MAKING - ED course Complexity details: considered differential, d/w patient, d/w family ED course: Patient with a history of pseudoseizures. His seizure activity is consistent with this today. No indication for lab work or imaging at this time. He sees neurology on Sunday. Patient counseled regarding signs and symptoms for which I believe and urgent re-evaluation would be necessary. Patient with good unde rstanding of and agreement to plan and is comfortable going home at this time This document was made in part using voice recognition software. While efforts are made to proofread this document, sound alike and grammatical errors may occur. Departure - Departure Disposition: Home, Self Care Clinical Impression: Pseudoseizure Condition: Good Instructions: ED Seizure Recurrent Follow-Up: SILKE MILES MD [Primary Care Provider] - Within 1 week Comments: Follow-up with neurology as scheduled on Sunday. Return if you worsen. Discharge Date/Time: 08/04/19 18:37
[2019-08-04 18:34] VITALS: BP 149/90
== END 2019-08-04 18:37 | disposition home or self-care (01) ==
LOC: ED 17:52
DX: G40.89 Other seizures (principal); I10 Essential (primary) hypertension
CPT/HCPCS: 96372; 99283; 99284

== ENCOUNTER 2019-10-03 08:12 | Outpatient (CLI) | payer OTHER | END 2019-10-03 08:13 | disposition critical access hospital (66) | LOC: EMS 08:12 | PROVIDERS: ATTEND Surgery | DX: R56.9 Unspecified convulsions (principal) | CPT/HCPCS: A0425; A0427 ==

== ENCOUNTER 2019-10-03 08:34 | Emergency (ER) | payer OTHER ==
[2019-10-03] MEDS ORDERED: SODIUM CHLORIDE 0.9% 1,000 ML IV ONE (08:43)
[2019-10-03 09:08] LABS: BASOPHILS % (AUTO) 0.6 %; EOSINOPHILS # (AUTO) 0.1 10^3/uL (0.0-0.7); EOSINOPHILS % (AUTO) 0.8 %; HGB - HEMOGLOBIN 15.2 g/dL (14.0-18.0); LYMPHOCYTES # (AUTO) 1.2 10^3/uL (1.5-3.5); LYMPHOCYTES % (AUTO) 19.2 %; MEAN CORPUSCULAR HEMOGLOBIN 30.5 pg (27.0-31.0); MEAN CORPUSCULAR HGB CONC 35.5 g/dL (32.0-36.0); MEAN CORPUSCULAR VOLUME 85.9 fL (80.0-94.0); MEAN PLATELET VOLUME 9.6 fL (7.4-11.4); MONOCYTES # (AUTO) 0.6 10^3/uL (0.0-1.0); MONOCYTES % (AUTO) 8.7 %; NEUTROPHILS # (AUTO) 4.5 10^3/uL (1.5-6.6); NEUTROPHILS % (AUTO) 70.2 %; PLT - PLATELET COUNT 306 10^3/uL (130-450); RED BLOOD COUNT 4.98 10^6/uL (4.70-6.10); RED CELL DISTRIBUTION WIDTH 11.7 % (12.0-15.0); WHITE BLOOD COUNT 6.4 x10^3/uL (4.8-10.8)
[2019-10-03 09:25] LABS: ALBUMIN 4.4 g/dL (3.2-5.5); ALBUMIN/GLOBULIN RATIO 1.1 (1.0-2.2); BILIRUBIN,TOTAL 0.4 mg/dL (0.2-1.0); CALCIUM 9.4 mg/dL (8.5-10.3); MAGNESIUM 1.9 mg/dL (1.7-2.8); TOTAL PROTEIN 8.3 g/dL (6.7-8.2)
--- NOTE | 2019-10-03 09:32 | ED Physician Documentation ---
PD HPI SEIZURE - Stated complaint Stated Complaint: SZ - Chief complaint Chief Complaint: Neuro - History obtained from History obtained from: Patient - History of Present Illness Timing - onset: Today Witnessed: Witnessed Number of seizures: Multiple (Reportedly has had 3 episodes of self-limited seizure-like activity this morning. He had some brief activity per EMS and was given 2.5 of medazepam IV. He arrives somnolent withdrawing from pain but not having any eye-opening at this time. No seizure-like activity.), Recovered between seizure Description of seizure activity: Generalized Injury during seizure: None History of seizures: Known seizure disorder (History of seizure-like episodes with the evaluation at [facility] neurology and currently diagnosis of pseudoseizures and conversion disorder.). No: Prior TBI Contributing factors: Changed meds (The patient previously had been on venlafaxine and lisinopril at the initial symptoms back last November. Looks like these had been medications up to a few months ago. Current medications looks l kelechi he is off the venlafaxine and still with lisinopril and currently with increasing doses of gabapentin. He is also on meloxicam). No: Off meds Similar symptoms before: Diagnosis (apparently pseudoseizures and conversion disorder.) Recently seen: Not recently seen Review of Systems Unable to obtain: AMS, Other (info once awake from meds) Constitutional: denies: Fever, Chills Nose: denies: Rhinorrhea / runny nose, Congestion Throat: denies: Sore throat Respiratory: denies: Cough GI: denies: Abdominal Pain, Vomiting, Diarrhea Musculoskeletal: reports: Back pain (for months) Neurologic: reports: Focal weakness (left face, arm and leg since last November, with eval at [facility] Neurology at that time and again in Mar. Is now [facility] Neurologist in [place]. Dx of pseudoseizures and conversion disorder.) PD PAST MEDICAL HISTORY - Past Medical History Past Medical History: Yes Cardiovascular: Hypertension Neuro: Seizure disorder Psych: Anxiety Musculoskeletal: Other Other Past Medical History: conversion disorder - Past Surgical History Past Surgical History: Yes - Present Medications Home Medications: Ambulatory Orders Medication Instructions Recorded Confirmed Lisinopril [Zestril] 20 mg PO DAILY 11/25/18 10/03/19 Gabapentin [Neurontin] 600 mg PO TID 04/06/19 10/03/19 Gabapentin 300 mg PO BID 10/03/19 10/03/19 Meloxicam 7.5 mg PO DAILY 10/03/19 10/03/19 Omeprazole 20 mg PO DAILY 10/03/19 10/03/19 - Allergies Allergies/Adverse Reactions: Allergies Allergy/AdvReac Type Severity Reaction Status Date / Time No Known Drug Allergies Allergy Verified 10/03/19 08:40 - Living Situation Living Situation: reports: With spouse/s.o. Living Arrangement: reports: At home - Social History Does the pt smoke?: No Smoking Status: Never smoker Does the pt drink ETOH?: Yes Does the pt have substance abuse?: No - POLST Patient has POLST: No PD ED PE NORMAL - Vitals Vital signs reviewed: Yes - General General: Well developed/nourished (overweight) - HEENT HEENT: Atraumatic - Neck Neck: Supple, no meningeal sign, No adenopathy - Cardiac Cardiac: RRR, No murmur - Respiratory Respiratory: Clear bilaterally - Abdomen Abdomen: Normal bowel sounds, Soft, Non distended, No organomegaly - Male Male : Deferred - Rectal Rectal: Deferred - Derm Derm: Normal color, Warm and dry - Neuro Neuro: Other (Normal reflexes in all extremities). No: Alert and oriented X 3 (Withdraws to painful stimuli. Resists eye opening moving moderately. Pupils are equal round and reactive. There is a good gag reflex with some resistance to opening her his mouth. No obvious injuries on extremities.) Results - Vitals Vitals: Vital Signs - 24 hr 10/03/19 10/03/19 10/03/19 08:35 08:48 11:01 Temperature 37.4 C Heart Rate 129 H 123 H 108 H Respiratory 16 18 20 Rate Blood Pressure 137/89 H 132/96 H 131/91 H O2 Saturation 93 95 98 10/03/19 11:44 Temperature 37.1 C Heart Rate 107 H Respiratory 18 Rate Blood Pressure 148/102 H O2 Saturation 98 Oxygen O2 Source Room air - Labs Labs: Laboratory Tests 10/03/19 10/03/19 10/03/19 09:00 09:00 09:00 WBC 6.4 RBC 4.98 Hgb 15.2 Hct 42.8 MCV 85.9 MCH 30.5 MCHC 35.5 RDW 11.7 L Plt Count 306 MPV 9.6 Neut # (Auto) 4.5 Lymph # (Auto) 1.2 L [place] # (Auto) 0.6 Eos # (Auto) 0.1 Baso # (Auto) 0.0 Absolute Nucleated RBC 0.00 Nucleated RBC % 0.0 ESR 5 Sodium 135 Potassium 4.4 Chloride 103 Carbon Dioxide 22 Anion Gap 10.0 BUN 24 H Creatinine 1.0 Estimated GFR (MDRD) 89 Glucose 114 H Calcium 9.4 Magnesium 1.9 Total Bilirubin 0.4 AST 64 H ALT 106 H Alkaline Phosphatase 67 Total Protein 8.3 H Albumin 4.4 Globulin 3.9 Albumin/Globulin Ratio 1.1 Lipase 38 Prolactin 10/03/19 09:00 WBC RBC Hgb Hct MCV MCH MCHC RDW Plt Count MPV Neut # (Auto) Lymph # (Auto) [place] # (Auto) Eos # (Auto) Baso # (Auto) Absolute Nucleated RBC Nucleated RBC % ESR Sodium Potassium Chloride Carbon Dioxide Anion Gap BUN Creatinine Estimated GFR (MDRD) Glucose Calcium Magnesium Total Bilirubin AST ALT Alkaline Phosphatase Total Protein Albumin Globulin Albumin/Globulin Ratio Lipase Prolactin 17.27 PD MEDICAL DECISION MAKING - ED course Complexity details: considered differential (Patient reportedly is been seen by [facility] neurology and I see 2 transfers there in the last year being last November and last March I believe. He has had visits for seizure-like activity a couple of times since then last being in July. Reports there are of pseudoseizures and conversion disorder per [facility] neurology. Will attempt to get records from them. At this point we will watch the patient for awakening and further symptoms can check basic labs. Add no report of fever infection or injury so I do not see any reason for imaging or spinal tap.) Departure - Departure Disposition: 01 Home, Self Care Clinical Impression: Witnessed seizure-like activity, Pseudoseizure Condition: Stable Record reviewed to determine appropriate education?: Yes Instructions: ED Seizure Recurrent Follow-Up: SILKE MILES MD [Primary Care Provider] - Comments: Stay well-hydrated. Continue usual medications. Follow-up with your primary care and neurology that you were seen. Discharge Date/Time: 10/03/19 11:53
[2019-10-03] MEDS ORDERED: HYDROmorphone 1 MG/ML CARPUJECT IVP STA (11:19)
[2019-10-03] MEDS ORDERED: KETOROLAC 15 MG/ML VIAL IVP STA (11:19)
[2019-10-03 11:45] VITALS: BP 148/102
== END 2019-10-03 11:53 | disposition home or self-care (01) ==
LOC: EDUNIT# → ED 08:34
DX: F44.9 Dissociative and conversion disorder, unspecified (principal)
CPT/HCPCS: 36415; 80053; 83690; 83735; 84146; 85025; 85651; 96361; 96374; 99283; 99284; J1170